=== PATIENT | male | born 1965 | race Caucasian/White ===

== ENCOUNTER → 2017-04-05 | Outpatient (REF) | payer OTHER | LOC: M SFHCPLAZ 09:33 | PROVIDERS: ATTEND Internal Medicine | DX: E78.00 Pure hypercholesterolemia, unspecified (principal) ==

== ENCOUNTER → 2017-07-10 | Outpatient (REF) | payer OTHER ==
[2017-07-10 16:25] LABS: ALBUMIN 3.9 GM/DL (3.2-5.2); ALBUMIN/GLOBULIN RATIO 1.26 (1.00-1.93); ALKALINE PHOSPHATASE 74 U/L (45-117); ALT/SGPT 69 U/L (12-78); ANION GAP 9 MEQ/L (8-16); AST/SGOT 40 U/L (15-37); BILIRUBIN,TOTAL 0.6 MG/DL (0.2-1.0); BLOOD UREA NITROGEN 12 MG/DL (7-18); CALCIUM LEVEL 9.2 MG/DL (8.5-10.1); CARBON DIOXIDE LEVEL 28 MEQ/L (21-32); CHLORIDE LEVEL 104 MEQ/L (98-107); CHOLESTEROL LEVEL 248 MG/DL (<200); CREATININE FOR GFR 0.83 MG/DL (0.70-1.30); GLOMERULAR FILTRATION RATE > 60.0 (>56); GLUCOSE, FASTING 95 MG/DL (70-105); POTASSIUM SERUM 4.1 MEQ/L (3.5-5.1); SODIUM LEVEL 141 MEQ/L (136-145); TRIGLYCERIDES LEVEL 409 MG/DL (<150)
[2017-07-10 16:32] LABS: MEAN CORPUSCULAR HEMOGLOBIN 28.9 pg (27.0-33.0); MEAN CORPUSCULAR HGB CONC 32.9 g/dl (32.0-36.5); MEAN CORPUSCULAR VOLUME 87.7 fl (80.0-96.0); PLATELET COUNT, AUTOMATED 230 10^3/uL (150-450); RED CELL DISTRIBUTION WIDTH 12.4 % (11.5-14.5); WHITE BLOOD COUNT 5.8 10^3/uL (4.0-10.0)
== END ==
LOC: M SFHCPLAZ 12:43
PROVIDERS: ATTEND Internal Medicine
DX: Z00.00 Encounter for general adult medical examination without abnormal findings (principal); Z79.899 Other long term (current) drug therapy; K76.0 Fatty (change of) liver, not elsewhere classified; E78.00 Pure hypercholesterolemia, unspecified

== ENCOUNTER → 2018-07-09 | Outpatient (REF) | payer OTHER ==
[2018-07-09 11:38] LABS: HEMATOCRIT 47.6 % (42.0-52.0); MEAN CORPUSCULAR HEMOGLOBIN 28.9 pg (27.0-33.0); MEAN CORPUSCULAR HGB CONC 33.6 g/dl (32.0-36.5); MEAN CORPUSCULAR VOLUME 86.1 fl (80.0-96.0); PLATELET COUNT, AUTOMATED 243 10^3/uL (150-450); RED BLOOD COUNT 5.53 10^6/uL (4.30-6.10); RED CELL DISTRIBUTION WIDTH 12.5 % (11.5-14.5)
[2018-07-09 12:39] LABS: ALBUMIN 3.9 GM/DL (3.2-5.2); ALBUMIN/GLOBULIN RATIO 1.18 (1.00-1.93); ALKALINE PHOSPHATASE 72 U/L (45-117); ALT/SGPT 76 U/L (12-78); ANION GAP 5 MEQ/L (8-16); AST/SGOT 47 U/L (7-37); BILIRUBIN,TOTAL 0.5 MG/DL (0.2-1.0); BLOOD UREA NITROGEN 15 MG/DL (7-18); CALCIUM LEVEL 8.9 MG/DL (8.5-10.1); CARBON DIOXIDE LEVEL 30 MEQ/L (21-32); CHLORIDE LEVEL 103 MEQ/L (98-107); CHOLESTEROL LEVEL 271 MG/DL (<200); CHOLESTEROL RISK RATIO 6.452 (<5); CPK CREATINE PHOSPHOKINASE 976 U/L (39-308); CREATININE FOR GFR 0.89 MG/DL (0.70-1.30); GLOMERULAR FILTRATION RATE > 60.0 (>56); GLUCOSE, FASTING 103 MG/DL (70-100); HDL CHOLESTEROL 42 MG/DL (>40); NON-HDL-C 229 MG/DL; POTASSIUM SERUM 4.1 MEQ/L (3.5-5.1); SODIUM LEVEL 138 MEQ/L (136-145); TOTAL PROTEIN 7.2 GM/DL (6.4-8.2); TRIGLYCERIDES LEVEL 505 MG/DL (<150)
== END ==
LOC: M SFHCPLAZ 09:43
DX: E78.00 Pure hypercholesterolemia, unspecified (principal); R74.8 Abnormal levels of other serum enzymes
CPT/HCPCS: 82550

== ENCOUNTER → 2018-11-28 | Outpatient (REF) | payer OTHER ==
[2018-11-28 13:05] LABS: CHOLESTEROL RISK RATIO 4.48 (<5)
== END ==
LOC: M SFHCPLAZ 10:13
PROVIDERS: ATTEND Internal Medicine
DX: E78.00 Pure hypercholesterolemia, unspecified (principal)

== ENCOUNTER → 2019-07-10 | Outpatient (REF) | payer OTHER ==
[2019-07-10 11:16] LABS: HEMATOCRIT 47.6 % (42.0-52.0); HEMOGLOBIN 15.5 g/dl (13.5-17.5); MEAN CORPUSCULAR HEMOGLOBIN 28.9 pg (27.0-33.0); MEAN CORPUSCULAR HGB CONC 32.6 g/dl (32.0-36.5); MEAN CORPUSCULAR VOLUME 88.6 fl (80.0-96.0); PLATELET COUNT, AUTOMATED 229 10^3/uL (150-450); RED BLOOD COUNT 5.37 10^6/uL (4.30-6.10)
[2019-07-10 11:40] LABS: ALT/SGPT 71 U/L (12-78); BILIRUBIN,TOTAL 0.6 MG/DL (0.2-1.0); BLOOD UREA NITROGEN 14 MG/DL (7-18); CALCIUM LEVEL 9.3 MG/DL (8.5-10.1); CARBON DIOXIDE LEVEL 30 MEQ/L (21-32); CHLORIDE LEVEL 103 MEQ/L (98-107); CHOLESTEROL LEVEL 227 MG/DL (<200); CPK CREATINE PHOSPHOKINASE 832 U/L (39-308); GLOMERULAR FILTRATION RATE > 60.0 (>56); GLUCOSE, FASTING 104 MG/DL (70-100); HDL CHOLESTEROL 51 MG/DL (>40); LDL CHOLESTEROL 130 MG/DL (<100); NON-HDL-C 176 MG/DL; POTASSIUM SERUM 4.4 MEQ/L (3.5-5.1); SODIUM LEVEL 139 MEQ/L (136-145); TOTAL PROTEIN 7.5 GM/DL (6.4-8.2); TRIGLYCERIDES LEVEL 231 MG/DL (<150)
== END ==
LOC: M SFHCPLAZ 09:20
PROVIDERS: ATTEND Internal Medicine
DX: Z79.899 Other long term (current) drug therapy (principal); R74.8 Abnormal levels of other serum enzymes; E78.00 Pure hypercholesterolemia, unspecified

== ENCOUNTER → 2020-03-29 | Outpatient (REF) | payer OTHER, SELFPAY | LOC: M LAB REF 18:17 | PROVIDERS: ATTEND Dermatology | DX: D17.39 Benign lipomatous neoplasm of skin and subcutaneous tissue of other sites (principal) ==

== ENCOUNTER → 2020-05-04 | Outpatient (REF) | payer OTHER, SELFPAY ==
[2020-05-04 16:12] LABS: BASO % 0.6 % (0.0-1.0); EOS # 0.1 10^3/uL (0.0-0.5); EOS % 2.3 % (0.0-3.0); HEMATOCRIT 50.4 % (42.0-52.0); HEMOGLOBIN 16.3 g/dl (13.5-17.5); LYMPH # 2.4 10^3/uL (1.5-5.0); LYMPH % 38.2 % (24.0-44.0); MEAN CORPUSCULAR HGB CONC 32.3 g/dl (32.0-36.5); MEAN CORPUSCULAR VOLUME 89.7 fl (80.0-96.0); MONO # 0.7 10^3/uL (0.0-0.8); MONO % 11.3 % (0.0-5.0); NEUTROPHILS # 2.9 10^3/uL (1.5-8.5); PLATELET COUNT, AUTOMATED 242 10^3/uL (150-450); RED BLOOD COUNT 5.62 10^6/uL (4.30-6.10); WHITE BLOOD COUNT 6.2 10^3/uL (4.0-10.0)
[2020-05-04 17:46] LABS: ALBUMIN 4.1 GM/DL (3.2-5.2); ALT/SGPT 73 U/L (12-78); BILIRUBIN,TOTAL 0.5 MG/DL (0.2-1.0); BLOOD UREA NITROGEN 13 MG/DL (7-18); CALCIUM LEVEL 9.1 MG/DL (8.5-10.1); CARBON DIOXIDE LEVEL 30 MEQ/L (21-32); CHLORIDE LEVEL 104 MEQ/L (98-107); CHOLESTEROL LEVEL 227 MG/DL (<200); CHOLESTEROL RISK RATIO 5.044 (<5); GLOMERULAR FILTRATION RATE > 60.0 (>56); GLUCOSE, FASTING 102 MG/DL (70-100); HDL CHOLESTEROL 45 MG/DL (>40); LDL CHOLESTEROL 127 MG/DL (<100); NON-HDL-C 182 MG/DL; POTASSIUM SERUM 4.2 MEQ/L (3.5-5.1); SODIUM LEVEL 137 MEQ/L (136-145); TOTAL PROTEIN 7.6 GM/DL (6.4-8.2); TRIGLYCERIDES LEVEL 274 MG/DL (<150)
== END ==
LOC: M PLALAB 15:08
PROVIDERS: ATTEND Internal Medicine
DX: Z00.00 Encounter for general adult medical examination without abnormal findings (principal); E78.00 Pure hypercholesterolemia, unspecified; Z79.899 Other long term (current) drug therapy; Z12.5 Encounter for screening for malignant neoplasm of prostate

== ENCOUNTER → 2021-08-24 | Outpatient (CLI) | payer OTHER ==
[2021-08-24 11:17] LABS: BASO % 0.5 % (0.0-1.0); EOS # 0.2 10^3/uL (0.0-0.5); HEMATOCRIT 48.3 % (42.0-52.0); HEMOGLOBIN 15.7 g/dl (13.5-17.5); LYMPH # 2.1 10^3/uL (1.5-5.0); LYMPH % 34.7 % (24.0-44.0); MEAN CORPUSCULAR HEMOGLOBIN 28.9 pg (27.0-33.0); MEAN CORPUSCULAR HGB CONC 32.5 g/dl (32.0-36.5); MONO # 0.8 10^3/uL (0.0-0.8); MONO % 13.2 % (2.0-8.0); NEUTROPHILS # 2.8 10^3/uL (1.5-8.5); NEUTROPHILS % 46.8 % (36.0-66.0); PLATELET COUNT, AUTOMATED 218 10^3/uL (150-450); RED BLOOD COUNT 5.43 10^6/uL (4.30-6.10)
[2021-08-24 12:27] LABS: ALBUMIN 3.8 GM/DL (3.2-5.2); ALT/SGPT 70 U/L (12-78); BILIRUBIN,TOTAL 0.4 MG/DL (0.2-1.0); BLOOD UREA NITROGEN 15 MG/DL (7-18); CALCIUM LEVEL 9.5 MG/DL (8.5-10.1); CARBON DIOXIDE LEVEL 28 MEQ/L (21-32); CHLORIDE LEVEL 105 MEQ/L (98-107); CHOLESTEROL LEVEL 239 MG/DL (<200); CHOLESTEROL RISK RATIO 6.128 (<5); CREATININE FOR GFR 0.73 MG/DL (0.70-1.30); GLOMERULAR FILTRATION RATE > 60.0 (>56); GLUCOSE, FASTING 125 MG/DL (70-100); HDL CHOLESTEROL 39 MG/DL (>40); LDL CHOLESTEROL 137 MG/DL (<100); NON-HDL-C 200 MG/DL; POTASSIUM SERUM 4.4 MEQ/L (3.5-5.1); SODIUM LEVEL 140 MEQ/L (136-145); TOTAL PROTEIN 7.1 GM/DL (6.4-8.2); TRIGLYCERIDES LEVEL 317 MG/DL (<150)
[2021-08-24 12:41] LABS: HEPATITIS C VIRUS ABY INDEX 0.1 INDEX (<0.8)
== END ==
LOC: M PLALAB 08:41
PROVIDERS: ATTEND Internal Medicine
DX: E78.00 Pure hypercholesterolemia, unspecified (principal)

== ENCOUNTER → 2022-02-26 | Outpatient (CLI) | payer OTHER ==
[2022-02-26 11:56] LABS: HEMOGLOBIN A1c 6.4 %
[2022-02-26 12:22] LABS: ALT/SGPT 93 U/L (12-78); BILIRUBIN,TOTAL 0.6 MG/DL (0.2-1.0); BLOOD UREA NITROGEN 14 MG/DL (7-18); CARBON DIOXIDE LEVEL 30 MEQ/L (21-32); CHLORIDE LEVEL 108 MEQ/L (98-107); CHOLESTEROL LEVEL 214 MG/DL (<200); CHOLESTEROL RISK RATIO 5.095 (<5); CREATININE FOR GFR 0.96 MG/DL (0.70-1.30); GLOMERULAR FILTRATION RATE > 60.0 (>56); GLUCOSE, FASTING 139 MG/DL (70-100); HDL CHOLESTEROL 42 MG/DL (>40); LDL CHOLESTEROL 119 MG/DL (<100); NON-HDL-C 172 MG/DL; POTASSIUM SERUM 4.6 MEQ/L (3.5-5.1); SODIUM LEVEL 142 MEQ/L (136-145); TOTAL PROTEIN 7.1 GM/DL (6.4-8.2); TRIGLYCERIDES LEVEL 263 MG/DL (<150)
[2022-02-26 13:56] LABS: MAU/CREAT RATIO 7.5 MCG/MG (0.0-30.0)
== END ==
LOC: M PLALAB 09:16
PROVIDERS: ATTEND Internal Medicine
DX: E78.00 Pure hypercholesterolemia, unspecified (principal); Z79.899 Other long term (current) drug therapy

== ENCOUNTER → 2024-02-04 | Outpatient (REF) | LOC: M PLAIMG 10:01 | PROVIDERS: ATTEND Nurse Practitioner Family | DX: J30.9 Allergic rhinitis, unspecified (principal) ==

== ENCOUNTER 2025-05-04 22:39 | Observation (INO) | payer OTHER ==
[~2025-05-04] VITALS: Ht 172.7 cm; Wt 96.8 kg
[2025-05-04 23:28] LABS: BASO # 0.0 10^3/uL (0.0-0.2); BASO % 0.3 % (0.0-1.0); EOS # 0.1 10^3/uL (0.0-0.5); EOS % 0.6 % (0.0-3.0); LYMPH # 3.0 10^3/uL (1.5-5.0); LYMPH % 22.8 % (24.0-44.0); MONO # 1.4 10^3/uL (0.0-0.8); MONO % 10.5 % (2.0-8.0); NEUTROPHILS # 8.6 10^3/uL (1.5-8.5); NEUTROPHILS % 65.3 % (36.0-66.0); PLATELET COUNT, AUTOMATED 261 10^3/uL (150-450)
[2025-05-04 23:45] LABS: CARBON DIOXIDE LEVEL 25 MMOL/L (20-31); CHLORIDE LEVEL 100 MMOL/L (98-107); CREATININE FOR GFR 0.77 MG/DL (0.70-1.30); GLOMERULAR FILTRATION RATE > 90.0 (>49); POTASSIUM SERUM 4.7 MMOL/L (3.5-5.1); SODIUM LEVEL 140 MMOL/L (136-145)
[2025-05-04 23:46] LABS: ALT/SGPT 97 U/L (7.0-40); AST/SGOT 132 U/L (<34); CALCIUM LEVEL 9.9 MG/DL (8.3-10.6)
[2025-05-04] MEDS ORDERED: ISOVUE-370 76% 100 ML VIAL As Ordered ONE (23:52)
[2025-05-04] MEDS: ACETAMINOPHEN *IV* 1,000 MG in IV 1 EA IV ONE (23:53)
[2025-05-04] MEDS: LR 1,000 ML IV ONE (23:53)
[2025-05-05 00:23] LABS: CK-MB VALUE MASS 4.4 NG/ML (<3.6); CPK CREATINE PHOSPHOKINASE 439 U/L (46-171); MB/CK RELATIVE INDEX 1.00 (< OR =4)
[2025-05-05] MEDS: ONDANSETRON 4MG 2ML VIAL IV ONE (00:26)
[2025-05-05 01:23] LABS: KETONE, URINE AUTO RFX 1+ mg/dL (NEGATIVE); LEUKOCYTE ESTERASE UR AUTO RFX NEGATIVE (NEGATIVE); NITRITE, URINE AUTO RFX NEGATIVE (NEGATIVE); RBC, URINE AUTO RFX 1 /HPF (0-3); SQUAM EPITHELIAL CELL UR AURFX 0 /HPF (0-6); WBC, URINE AUTO RFX 1 /HPF (0-3)
[2025-05-05 01:45] LABS: INR 1.0
[2025-05-05 04:09] LABS: CHOLESTEROL LEVEL 186.0 MG/DL (<200); CHOLESTEROL RISK RATIO 3.61 (<5); LDL CHOLESTEROL 108.2 MG/DL (<100); NON-HDL-C 134.6 MG/DL; TRIGLYCERIDES LEVEL 132.0 MG/DL (<150)
[2025-05-05] MEDS ORDERED: GLUCOSE 4 GM CHEW PO PRN (06:15)
[2025-05-05] MEDS ORDERED: ACETAMINOPHEN 325 MG TAB PO PRN (06:15)
[2025-05-05] MEDS ORDERED: GLUCAGON INJ 1 MG VIAL SC PRN (06:15)
[2025-05-05] MEDS ORDERED: DEXTROSE 50% 50 ML SYRINGE IV PRN (06:15)
[2025-05-05] MEDS ORDERED: MORPHINE 2 MG/ML 1 ML VIAL IV PRN ×3 (06:15→10:15)
[2025-05-05] MEDS: LR 1,000 ML IV SCH ×2 (06:52→08:03)
[2025-05-05] MEDS: INSULIN LISPRO (NovoLOG) PER UNIT SC SCH (07:26)
[2025-05-05] MEDS ORDERED: ONDANSETRON 4MG 2ML VIAL IV PRN (07:30)
[2025-05-05] MEDS ORDERED: VASC1CAP2 PO (07:48)
[2025-05-05] MEDS ORDERED: VENTAER INH (07:48)
[2025-05-05] MEDS ORDERED: ROSU20TA86 PO (07:48)
[2025-05-05] MEDS ORDERED: METF10004 PO (07:48)
[2025-05-05] MEDS ORDERED: OMEP1CAP73 PO (07:48)
[2025-05-05] MEDS ORDERED: MULTTAB61 PO (07:48)
[2025-05-05] MEDS ORDERED: JARD1TAB PO (07:48)
[2025-05-05] MEDS ORDERED: KETO2CR TOP (07:48)
[2025-05-05] MEDS ORDERED: HOME MED LIST COMPLETE! XX SCH (07:55)
[2025-05-05 08:09] LABS: PLATELET COUNT, AUTOMATED 230 10^3/uL (150-450)
[2025-05-05 08:20] VITALS: BP 120/74; TEMP 98.2; O2SAT 95
[2025-05-05 08:27] LABS: ESTIMATED AVERAGE GLUCOSE 143.0 MG/DL (60-110)
[2025-05-05 08:34] LABS: ALT/SGPT 109 U/L (7.0-40); AST/SGOT 91 U/L (<34); CALCIUM LEVEL 8.9 MG/DL (8.3-10.6); CARBON DIOXIDE LEVEL 28 MMOL/L (20-31); CHLORIDE LEVEL 103 MMOL/L (98-107); CREATININE FOR GFR 0.64 MG/DL (0.70-1.30); GLOMERULAR FILTRATION RATE > 90.0 (>49); POTASSIUM SERUM 3.9 MMOL/L (3.5-5.1); SODIUM LEVEL 143 MMOL/L (136-145)
[2025-05-05] MEDS: ENOXAPARIN 40 MG/0.4 ML SYRINGE (J1650 PER 10MG) SC SCH (09:00)
[2025-05-05] MEDS: PANTOPRAZOLE 40MG VIAL IV SCH (09:03)
[2025-05-05 12:00] VITALS: BP 124/80; TEMP 97.9; O2SAT 93
[2025-05-05] MEDS ORDERED: INSULIN LISPRO (NovoLOG) PER UNIT SC SCH (21:00)
== END 2025-05-05 17:11 | disposition home or self-care (01) ==
LOC: M ED 22:39 → M ED INP 22:40 → M MS4PR 05-05 08:07
PROVIDERS: ADMIT Student in an Organized Health Care Education/Training Program; ATTEND Student in an Organized Health Care Education/Training Program
DX: R74.8 Abnormal levels of other serum enzymes (principal); C64.2 Malignant neoplasm of left kidney, except renal pelvis; N28.1 Cyst of kidney, acquired; R74.01 Elevation of levels of liver transaminase levels; K76.0 Fatty (change of) liver, not elsewhere classified; E11.65 Type 2 diabetes mellitus with hyperglycemia; E66.9 Obesity, unspecified; Z68.33 Body mass index [BMI] 33.0-33.9, adult; R10.9 Unspecified abdominal pain; E78.5 Hyperlipidemia, unspecified; E78.1 Pure hyperglyceridemia; Z87.19 Personal history of other diseases of the digestive system; Z98.52 Vasectomy status; Z79.899 Other long term (current) drug therapy; Z79.84 Long term (current) use of oral hypoglycemic drugs
CPT/HCPCS: 36415; 71250; 74177; 76705; 80048; 80053; 80061; 80076; 81001; 82550; 82553; 83036; 83690; 84484; 85025; 85027; 85610; 85730; 96361; 96365; 96375; 99285; J0131; J2405; J2470; Q9967

== ENCOUNTER 2025-06-17 10:31 | Inpatient (IN) | payer OTHER ==
[~2025-06-17] VITALS: Ht 172.7 cm; Wt 98.4 kg
[~2025-06-17 10:31] MED LIST: ACETAMINOPHEN 1000MG/100ML IV BAG As Ordered ONE; HYDROmorphone HCL 2 MG/ML 1 ML VIAL As Ordered ONE; JARD1TAB PO; KETO2CR TOP; LIDOCAINE 2% 100 MG/5 ML SDV (FOR ANES.) As Ordered ONE; METF10004 PO; MIDAZOLAM INJ 2 MG/2 ML VIAL As Ordered ONE; MULTTAB61 PO; OMEP1CAP73 PO; ONDANSETRON 4MG 2ML VIAL As Ordered ONE; ROCURONIUM BROMIDE 50MG/5ML VIAL As Ordered ONE; ROSU20TA86 PO; SUGAMMADEX SODIUM 500 MG/5 ML VIAL As Ordered ONE; VASC1CAP2 PO; VENTAER INH; dexAMETHasone 4 MG/ML 1 ML VIAL As Ordered ONE
[2025-06-17] MEDS ORDERED: DEXTROSE 50% 50 ML SYRINGE IV PRN ×2 (11:35)
[2025-06-17] MEDS ORDERED: ACETAMINOPHEN 325 MG TAB PO PRN (11:35)
[2025-06-17] MEDS ORDERED: ALBUTEROL 90 MCG/ACT 8 GM HFA INHALER INH PRN (11:35)
[2025-06-17] MEDS: LR 1,000 ML IV SCH ×2 (11:35→18:15)
[2025-06-17] MEDS ORDERED: GLUCAGON INJ 1 MG VIAL SC PRN ×2 (11:35)
[2025-06-17] MEDS ORDERED: GLUCOSE 4 GM CHEW PO PRN ×2 (11:35)
[2025-06-17] MEDS: ceFAZolin SOD 2 GM IV ONCE IV ONE (12:40)
[2025-06-17] MEDS ORDERED: GLYCOPYRROLATE INJ 0.2 MG/ML 2 ML VIAL As Ordered ONE (13:14)
[2025-06-17] MEDS: LIDOCAINE 1% SDV 30 ML VIAL As Ordered ONE (18:02)
[2025-06-17] MEDS ORDERED: ONDANSETRON 4MG 2ML VIAL IV PRN (18:15)
[2025-06-17] MEDS ORDERED: HYDROMORPHONE HCL 0.5 MG/0.5 ML SYRINGE IV PRN (18:15)
[2025-06-17] MEDS ORDERED: INSULIN LISPRO (NovoLOG) PER UNIT SC PRN (18:40)
[2025-06-17] MEDS: INSULIN LISPRO (NovoLOG) PER UNIT SC PRN (18:43)
[2025-06-17] MEDS: INSULIN LISPRO (NovoLOG) PER UNIT SC SCH ×2 (18:43→21:00)
[2025-06-17 19:16] LABS: PLATELET COUNT, AUTOMATED 214 10^3/uL (150-450)
[2025-06-17] MEDS: NS (Normal Saline) 0.9% 1,000 ML IV SCH (19:35)
[2025-06-17 19:39] LABS: CALCIUM LEVEL 8.3 MG/DL (8.3-10.6); CARBON DIOXIDE LEVEL 26 MMOL/L (20-31); CHLORIDE LEVEL 101 MMOL/L (98-107); CREATININE FOR GFR 0.95 MG/DL (0.70-1.30); GLOMERULAR FILTRATION RATE > 90.0 (>49); POTASSIUM SERUM 4.2 MMOL/L (3.5-5.1); SODIUM LEVEL 138 MMOL/L (136-145)
[2025-06-17] MEDS ORDERED: TETRAHYDROZOLINE OPHTH 0.05% 15 ML BTL OD PRN (19:45)
[2025-06-17] MEDS ORDERED: TETRACAINE 0.5% OPHTH SOLN 4ML As Ordered ONE (19:54)
[2025-06-17 20:00] VITALS: BP 124/71; TEMP 97.3; O2SAT 88
[2025-06-17] MEDS ORDERED: TETRACAINE 0.5% OPHTH SOLN 4ML OU ONE (20:10)
[2025-06-17] MEDS: DOCUSATE SODIUM 100 MG CAPSULE PO SCH (20:24)
[2025-06-17] MEDS: ceFAZolin SOD 1 GM in DEXTROSE 5% (D5W) ADV/MINI-BAG 50 ML IV SCH (20:24)
[2025-06-17] MEDS: ONDANSETRON 4MG 2ML VIAL IV PRN (20:24)
[2025-06-17] MEDS: PERCOCET 5MG/325MG TAB PO PRN (20:25)
[2025-06-17 20:30] VITALS: BP 126/75; TEMP 97.5; O2SAT 96
[2025-06-17] MEDS ORDERED: HOME MED LIST COMPLETE! XX SCH (20:30)
[2025-06-17 21:30] VITALS: BP 125/75; TEMP 97.5; O2SAT 95
[2025-06-17] MEDS: OMEPRAZOLE 20MG CAP PO SCH (21:31)
[2025-06-17 22:30] VITALS: BP 124/72; TEMP 97.9; O2SAT 95
[2025-06-18] VITALS: BP 126/75; TEMP 98.6; O2SAT 96
[2025-06-18] MEDS: PERCOCET 5MG/325MG TAB PO PRN (03:50)
[2025-06-18 03:51] VITALS: BP 127/78; TEMP 98.2; O2SAT 97
[2025-06-18] MEDS ORDERED: COLA100C5 PO (07:32)
[2025-06-18] MEDS ORDERED: PERCOCET PO (07:32)
[2025-06-18] MEDS: ROSUVASTATIN 10 MG TAB PO SCH (07:38)
[2025-06-18 07:42] LABS: PLATELET COUNT, AUTOMATED 250 10^3/uL (150-450)
[2025-06-18 08:00] VITALS: BP 128/78; TEMP 97.3; O2SAT 93
[2025-06-18 08:05] LABS: CALCIUM LEVEL 8.4 MG/DL (8.3-10.6); CARBON DIOXIDE LEVEL 27.0 MMOL/L (20-31); CHLORIDE LEVEL 102.0 MMOL/L (98-107); CREATININE FOR GFR 1.13 MG/DL (0.70-1.30); GLOMERULAR FILTRATION RATE 74.4 (>49); POTASSIUM SERUM 4.2 MMOL/L (3.5-5.1); SODIUM LEVEL 138.0 MMOL/L (136-145)
[2025-06-18] MEDS: SIMETHICONE 80MG CHEW TAB PO ONE (11:07)
[2025-06-18] MEDS: MOM 30 ML SUSPENSION UDC PO ONE (11:07)
[2025-06-18 12:00] VITALS: BP_SYST 128; BP_SYST 137; BP_DIAS 72; BP_DIAS 76; TEMP 97.5; TEMP 97.9; O2SAT 94; O2SAT 96
== END 2025-06-18 15:05 | disposition home or self-care (01) | DRG 658 ==
LOC: M OR 10:31 → M MSPAV 20:00
PROVIDERS: ADMIT Urology; ATTEND Urology
PROC: 8E0W4CZ Robotic Assisted Procedure of Trunk Region, Percutaneous Endoscopic Approach (ICD-10-PCS; 2025-06-17)
PROC: 0TT14ZZ Resection of Left Kidney, Percutaneous Endoscopic Approach (ICD-10-PCS; principal; 2025-06-17 12:00)
DX: C64.1 Malignant neoplasm of right kidney, except renal pelvis (principal); E78.1 Pure hyperglyceridemia; E11.9 Type 2 diabetes mellitus without complications